=== PATIENT | female | born 1990 | race Caucasian/White ===

== ENCOUNTER 2016-10-01 14:11 | Emergency (ER) | payer BC, OTHER ==
[2016-10-01] MEDS ORDERED: HALOPERIDOL 5 MG/ML VIAL ONE (16:34)
== END 2016-10-01 19:24 | disposition home or self-care (01) ==
DX: R51 Headache (principal); R11.2 Nausea with vomiting, unspecified; H53.149 Visual discomfort, unspecified; Z86.69 Personal history of other diseases of the nervous system and sense organs; F41.9 Anxiety disorder, unspecified

== ENCOUNTER 2021-05-02 19:06 | Outpatient (CLI) | payer MEDICAID | END 2021-05-02 19:07 | disposition critical access hospital (66) | LOC: EMS 19:06 | DX: O9A.211 Injury, poisoning and certain other consequences of external causes complicating pregnancy, first trimester (principal); S06.9X1A Unspecified intracranial injury with loss of consciousness of 30 minutes or less, initial encounter; T14.8XXA Other injury of unspecified body region, initial encounter; R68.84 Jaw pain; V28.4XXA Motorcycle driver injured in noncollision transport accident in traffic accident, initial encounter; Y93.89 Activity, other specified; Z3A.00 Weeks of gestation of pregnancy not specified | CPT/HCPCS: A0425; A0429 ==

== ENCOUNTER 2021-05-02 19:16 | Emergency (ER) | payer BC, MEDICAID ==
[2021-05-02] MEDS ORDERED: ETOMIDATE 40 MG/20 ML VIAL IVP STA (19:19)
[2021-05-02] MEDS ORDERED: fentaNYL 100 MCG/2 ML VIAL IVP STA ×2 (19:19→21:19)
[2021-05-02] MEDS ORDERED: ROCURONIUM 50 MG/5 ML VIAL IVP STA (19:19)
[2021-05-02] MEDS ORDERED: LIDOCAINE 2% ABBOJECT 100 MG/5 ML SYRINGE IVP STA (19:19)
[2021-05-02] MEDS ORDERED: fentaNYL 100 MCG/2 ML VIAL ONE (19:24)
[2021-05-02] MEDS ORDERED: LIDOCAINE 2%-EPI 1:100000 20 ML MDV ONE (19:24)
[2021-05-02] MEDS ORDERED: ETOMIDATE 40 MG/20 ML VIAL IVP ONE (19:25)
[2021-05-02] MEDS ORDERED: PROPOFOL 500 MG/50 ML 500 MG/50 ML VIAL IV STA (19:37)
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
[2021-05-02 19:51] LABS: BASOPHILS # (AUTO) 0.1 10^3/uL (0.0-0.1); BASOPHILS % (AUTO) 0.5 %; EOSINOPHILS # (AUTO) 0.1 10^3/uL (0.0-0.7); EOSINOPHILS % (AUTO) 0.7 %; HCT - HEMATOCRIT 32.3 % (37.0-47.0); HGB - HEMOGLOBIN 10.7 g/dL (12.0-16.0); LYMPHOCYTES # (AUTO) 4.9 10^3/uL (1.5-3.5); LYMPHOCYTES % (AUTO) 29.8 %; MEAN CORPUSCULAR HEMOGLOBIN 29.4 pg (27.0-31.0); MEAN CORPUSCULAR HGB CONC 33.1 g/dL (32.0-36.0); MEAN CORPUSCULAR VOLUME 88.7 fL (81.0-99.0); MEAN PLATELET VOLUME 9.7 fL (7.9-10.8); MONOCYTES # (AUTO) 0.7 10^3/uL (0.0-1.0); MONOCYTES % (AUTO) 4.2 %; NEUTROPHILS # (AUTO) 10.5 10^3/uL (1.5-6.6); NEUTROPHILS % (AUTO) 63.5 %; PLT - PLATELET COUNT 278 10^3/uL (130-450); RED BLOOD COUNT 3.64 10^6/uL (4.20-5.40); RED CELL DISTRIBUTION WIDTH 14.6 % (12.0-15.0); WHITE BLOOD COUNT 16.5 x10^3/uL (4.8-10.8)
[2021-05-02 20:03] LABS: ALBUMIN 3.1 g/dL (3.2-5.5); ALBUMIN/GLOBULIN RATIO 0.9 (1.0-2.2); ALKALINE PHOSPHATASE 82 IU/L (42-121); ALT ALANINE AMINOTRANSFERASE 28 IU/L (10-60); AST ASPARTATE AMINOTRANSFERASE 55 IU/L (10-42); BILIRUBIN,TOTAL 0.8 mg/dL (0.2-1.0); BUN - BLOOD UREA NITROGEN 14 mg/dL (6-20); CALCIUM 8.7 mg/dL (8.5-10.3); CARBON DIOXIDE - CO2 22 mmol/L (21-32); CHLORIDE 104 mmol/L (101-111); CREATININE 0.5 mg/dL (0.4-1.0); ETOH - ETHANOL < 5.0 mg/dL; GFR - MDRD 146 (>89); GLUCOSE 124 mg/dL (70-100); MAGNESIUM 1.9 mg/dL (1.7-2.8); POTASSIUM 3.4 mmol/L (3.5-5.0); SODIUM 136 mmol/L (135-145); TOTAL PROTEIN 6.7 g/dL (6.7-8.2)
[2021-05-02] MEDS ORDERED: PROPOFOL 200 MG/20 ML VIAL IVP STA (20:08)
[2021-05-02] MEDS ORDERED: MIDAZOLAM 2 MG/2 ML VIAL IVP STA (20:09)
[2021-05-02 20:22] LABS: MUDS CUTOFF CONCENTRATIONS CUTOFF CONC BELOW:
--- NOTE | 2021-05-02 20:25 | XRAY Report ---
PROCEDURE: Chest 1 View X-Ray INDICATIONS: resp failure TECHNIQUE: One view of the chest was acquired. COMPARISON: None FINDINGS: Surgical changes and devices: ET tube tip projects to near the cesar should be pulled back 2 to 3 cm . Distal tip of the ET tube is not definitely visualized due to artifact related to medical assistant ob gyn ov erlying the chest. NG tube projects past GE junction with tip and side-port projecting over the stoma ch. Lungs and pleura: No pleural effusions or pneumothorax. Increased opacification noted in the right l yariel which could represent atelectasis, aspiration or pulmonary contusion. Mediastinum: Mediastinal contours appear normal. Heart size is normal. Bones and chest wall: No displaced rib fractures identified. No suspicious bony lesions. Overlying soft tissues appear unremarkable. IMPRESSION: 1. ET tube near the cesar and should be pulled back 2 to 3 cm. 2. Increased opacification in the right lung which could represent pulmonary contusion, aspiration or atelectasis. Reviewed by: Andria Flynn MD, PhD on 05/02/2021 8:24 PM PDT Approved by: Andria Flynn MD, PhD on 05/02/2021 8:24 PM PDT Station ID: [email or web address]
[2021-05-02 20:27] LABS: BILIRUBIN,URINE NEGATIVE (NEGATIVE); GLUCOSE, URINE (UA) NEGATIVE (NEGATIVE); KETONES,URINE (UA) NEGATIVE (NEGATIVE); LEUKOCYTE ESTERASE, URINE NEGATIVE (NEGATIVE); NITRITE,URINE NEGATIVE (NEGATIVE); OCCULT BLOOD,URINE MODERATE (NEGATIVE); PROTEIN,URINE TRACE mg/dL (NEGATIVE); UROBILINOGEN,URINE 0.2 (NORMAL) E.U./dL (NORMAL)
[2021-05-02] MEDS ORDERED: IOPAMIDOL-300 50 ML VIAL IVP ONE (20:27)
--- NOTE | 2021-05-02 20:29 | CT Report ---
PROCEDURE: HEAD WO INDICATIONS: head inj TECHNIQUE: Noncontrast 4.5 mm thick angled axial sections acquired from the foramen magnum to the vertex. For r adiation dose reduction, the following was used: automated exposure control, adjustment of mA and/or kV according to patient size. COMPARISON: None. FINDINGS: Image quality: Excellent. CSF spaces: Basal cisterns are patent. No extra-axial fluid collections. Ventricles are normal in size and shape. Brain: No midline shift. No intracranial masses or hemorrhage. Farmer-white matter interface is norm al. Skull and face: Calvarium and visualized facial bones are intact, without suspicious lesions. Modera te-sized left temporal-parietal scalp contusion. Sinuses: Visualized sinuses and mastoids are clear. IMPRESSION: No acute intracranial disease process. Reviewed by: Andria Flynn MD, PhD on 05/02/2021 8:28 PM PDT Approved by: Andria Flynn MD, PhD on 05/02/2021 8:28 PM PDT Station ID: [email or web address]
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
[2021-05-02 20:33] LABS: BACTERIA,URINE Many /HPF (None Seen); CLARITY,URINE SL. CLOUDY (CLEAR); MUCUS,URINE Few Strands; SQUAMOUS EPITHELIAL CELL,UR FEW Squamous (<= Few)
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
[2021-05-02] MEDS ORDERED: IOPAMIDOL-300 50 ML VIAL ONE (20:35)
[2021-05-02 20:38] LABS: ABG HCO3 23.3 mmol/L (22.0-26.0); ABG PCO2 41 mmHg (34-45); ABG PH 7.37 (7.35-7.45); ABG PO2 142 mmHg (80-100); ABG TCO2 24.6 MMOL/L (21.0-29.0)
[2021-05-02 20:39] LABS: ABG BASE EXCESS -1.9 mmol/L (-2.0-3.0); ABG MODE OF VENTILATION ASSIST/CONTROL; ABG OXYGEN SATURATION 98 % (94-98); ABG RESPIRATORY RATE 18 b/min; ALLEN TEST POSITIVE
[2021-05-02 20:41] LABS: AMPHETAMINE SCREEN,URINE POSITIVE (NEGATIVE); BARBITURATE SCREEN,UR NEGATIVE (NEGATIVE); BENZODIAZEPINES SCREEN, URINE NEGATIVE (NEGATIVE); COCAINE SCREEN URINE NEGATIVE (NEGATIVE); METHADONE SCREEN, URINE NEGATIVE (NEGATIVE); METHAMPHETAMINES SCREEN, URINE POSITIVE (NEGATIVE); OPIATE SCREEN, URINE POSITIVE (NEGATIVE); OXYCODONE SCREEN, URINE NEGATIVE (NEGATIVE); PROPOXYPHENE SCREEN, URINE NEGATIVE (NEGATIVE); THC CANNABINOID SCREEN, URINE NEGATIVE (NEGATIVE); TRICYCLIC ANTIDEPRESSANT,URINE NEGATIVE (NEGATIVE)
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
[2021-05-02] MEDS ORDERED: LORazepam 2 MG/ML VIAL IVP STA (20:46)
[2021-05-02] MEDS ORDERED: ceFAZolin 1 GM VIAL IVP STA (20:49)
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
[2021-05-02 21:07] VITALS: BP 132/85
[2021-05-02 21:11] LABS: B. PARAPERTUSSIS- RESP PCR PAN NOT DETECTED; B. PERTUSSIS- RESP PCR PANEL NOT DETECTED; C. PNEUMONIAE- RESP PCR PANEL NOT DETECTED; CORONAVIRUS 229E-RESP PCR NOT DETECTED; CORONAVIRUS HKU1-RESP PCR NOT DETECTED; CORONAVIRUS NL63-RESP PCR NOT DETECTED; CORONAVIRUS OC43-RESP PCR NOT DETECTED; HUMAN METAPNEUMOVIRUS NOT DETECTED; INFLUENZA A- RESP PCR PANEL NOT DETECTED; INFLUENZA B - RESP PCR PANEL NOT DETECTED; M. PNEUMONIAE- RESP PCR PANEL NOT DETECTED; PARAINFLUENZA VIRUS 1 NOT DETECTED; PARAINFLUENZA VIRUS 2 NOT DETECTED; PARAINFLUENZA VIRUS 3 NOT DETECTED; PARAINFLUENZA VIRUS 4 NOT DETECTED; RHINOVIRUS/ENTEROVIRUS NOT DETECTED; RSV- RESP PCR PANEL NOT DETECTED; SARS-CoV-2 -RESP PCR PANEL NOT DETECTED
== END 2021-05-02 21:50 | disposition short-term general hospital (02) ==
LOC: EDUNIT# → ED 19:16
DX: O99.891 Other specified diseases and conditions complicating pregnancy (principal); O9A.212 Injury, poisoning and certain other consequences of external causes complicating pregnancy, second trimester; S06.9X1A Unspecified intracranial injury with loss of consciousness of 30 minutes or less, initial encounter; R40.2431 Glasgow coma scale score 3-8, in the field [EMT or ambulance]; R56.9 Unspecified convulsions; S02.69XB Fracture of mandible of other specified site, initial encounter for open fracture; S80.212A Abrasion, left knee, initial encounter; V28.4XXA Motorcycle driver injured in noncollision transport accident in traffic accident, initial encounter; Y92.410 Unspecified street and highway as the place of occurrence of the external cause; J96.00 Acute respiratory failure, unspecified whether with hypoxia or hypercapnia; T17.990A Other foreign object in respiratory tract, part unspecified in causing asphyxiation, initial encounter; Y65.3 Endotracheal tube wrongly placed during anesthetic procedure; Y92.230 Patient room in hospital as the place of occurrence of the external cause; O99.322 Drug use complicating pregnancy, second trimester; F15.10 Other stimulant abuse, uncomplicated; Z3A.20 20 weeks gestation of pregnancy; R82.71 Bacteriuria; Z20.822 Contact with and (suspected) exposure to COVID-19
CPT/HCPCS: 0202U; 31500; 36415; 36600; 51702; 70450; 71045; 71260; 72125; 74177; 80053; 80306; 80320; 81001; 82803; 83735; 85025; 85610; 96374; 96375; 99291; G0390; J2060; Q9967; 81003; 87086; 94770

== ENCOUNTER 2021-06-02 19:10 | Outpatient (CLI) | payer MEDICAID | END 2021-06-02 19:11 | disposition critical access hospital (66) | LOC: EMS 19:10 | DX: O46.93 Antepartum hemorrhage, unspecified, third trimester (principal); O99.891 Other specified diseases and conditions complicating pregnancy; M54.5 Low back pain; Z3A.28 28 weeks gestation of pregnancy | CPT/HCPCS: A0425; A0429; A0999 ==

== ENCOUNTER 2021-06-02 19:27 | Outpatient (CLI) | payer MEDICAID ==
[2021-06-02] MEDS ORDERED: SODIUM CHLORIDE FLUSH 0.9% 10 ML SYRINGE IVP PRN (19:35)
[2021-06-02] MEDS ORDERED: LACTATED RINGERS 1,000 ML IV ONE (19:38)
[2021-06-02] MEDS ORDERED: DEXTROSE 10% 250 ML IV ONE ×2 (19:50→19:53)
[2021-06-02] MEDS ORDERED: OXYTOCIN/SODIUM CHLORIDE 500 ML IV ONE (19:51)
[2021-06-02] MEDS ORDERED: OXYTOCIN 10 UNIT/ML VIAL IM ONE (19:55)
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
--- NOTE | 2021-06-02 20:54 | DELIVERY NOTE ---
Delivery Note - Labor Labor: positive: Spontaneous - Delivery Method Delivery Method: positive: Vaginal after - Presentation Presentation: positive: OA - occiput anterior - Nuchal Cord Nuchal Cord: positive: None - Anesthetic Anesthetic Type: - Amniotic Fluid Description Amniotic Fluid Description: positive: [place] tinged (Small amount.) - Episiotomy Type Episiotomy Type: positive: None - Laceration Laceration: positive: None - Delivery Outcome Delivery Outcome: positive: Livebirth - [place] sex: positive: Male - Cord Cord: positive: 3 vessels - Placenta Placenta: positive: Intact, Spontaneous - Estimated Blood Loss Estimated Blood Loss (in cc): 50 - Post Delivery Events Post Delivery Events: positive: No post delivery events - Delivery Comments (Free Text/Narrative) Delivery Comments (Free Text/Narrative): Preoperative diagnoses: 28 weeks gestation labor Prolonged, , prelabor rupture of membranes Hepatitis C Drug abuse in Short interpregnancy interval tobacco abuse in Previous low transverse section x1 Trial of labor after section Postoperative diagnoses: Same Vaginal after section History synopsis: Patient is a 31-year-old -0-1-1 at 28 weeks gestation who presented in labor after prolonged, , prelabor rupture of membranes that started on 05/07/2021. She previously received magnesium sulfate and two courses of corticosteroids. She remained inpatient at [facility] until yesterday when she left the hospital to be home for a few days. She started raghav earlier this evening and called EMS and was brought to the hospital. On arrival she was found to be grossly ruptured and completely dilated. Pediatricians were notified and on their way and the transport team was notified and also on their way. Mother was coached to breathe through contractions the most she could, however after several contractions, she could not hold it any longer. Delivery Summary: Patient was in the dorsal supine position in the triage bed when she was checked found to be 10/102/+2 and pushing. Upon maternal pushing the head was delivered atraumatically followed by the anterior shoulder, posterior shoulder, then the remainder of the 's body. Baby delivered in OA position and a male was delivered weighing 2 pounds 10 ounces with Apgars of 6 at 1 minute and 8 at 5 minutes. The was placed in a plastic bag and the cord was clamped and cut. The was then taken to the warmer where the pediatric team assumed care of the . A small amount of cord blood was obtained. The placenta delivered intact with three vessel cord. Placenta was sent to pathology. The patient did not have adequate IV access, so 10 units of IM oxytocin were given after the removal of the placenta. Uterine massage was performed until uterus was deemed firm. Upon inspection of the perineum, vagina and cervix were intact. Needle and sponge counts were correct. Patient was stable and allowed to recover in L&D room. was in the nursery awaiting transport to the NICU.
[2021-06-02] MEDS ORDERED: SIMETHICONE CHEW 80 MG TABLET PO PRN (20:59)
[2021-06-02] MEDS ORDERED: DOCUSATE SODIUM 100 MG CAPSULE PO PRN (20:59)
[2021-06-02] MEDS ORDERED: ACETAMINOPHEN 500 MG TABLET PO SCH (21:00)
[2021-06-02] MEDS ORDERED: IBUPROFEN 600 MG TABLET PO SCH (21:00)
[2021-06-02] MEDS ORDERED: LACTATED RINGERS 1,000 ML IV SCH (21:00)
[2021-06-02 22:05] LABS: MUDS CUTOFF CONCENTRATIONS CUTOFF CONC BELOW:
[2021-06-02 22:07] LABS: BILIRUBIN,URINE NEGATIVE (NEGATIVE); GLUCOSE, URINE (UA) NEGATIVE (NEGATIVE); KETONES,URINE (UA) 15 mg/dL (NEGATIVE); LEUKOCYTE ESTERASE, URINE NEGATIVE (NEGATIVE); NITRITE,URINE NEGATIVE (NEGATIVE); OCCULT BLOOD,URINE LARGE (NEGATIVE); PROTEIN,URINE NEGATIVE (NEGATIVE); UROBILINOGEN,URINE 0.2 (NORMAL) E.U./dL (NORMAL)
[2021-06-02 22:13] LABS: CLARITY,URINE HAZY (CLEAR)
[2021-06-02 22:14] LABS: BACTERIA,URINE Rare /HPF (None Seen); RBC,URINE TNTC /HPF (0-5); SQUAMOUS EPITHELIAL CELL,UR RARE Squamous (<= Few); WBC,URINE 0-3 /HPF (0-5)
[2021-06-02 22:16] LABS: COCAINE SCREEN URINE NEGATIVE (NEGATIVE); THC CANNABINOID SCREEN, URINE NEGATIVE (NEGATIVE)
[2021-06-02 22:17] LABS: AMPHETAMINE SCREEN,URINE POSITIVE (NEGATIVE); BARBITURATE SCREEN,UR NEGATIVE (NEGATIVE); BENZODIAZEPINES SCREEN, URINE NEGATIVE (NEGATIVE); METHADONE SCREEN, URINE POSITIVE (NEGATIVE); METHAMPHETAMINES SCREEN, URINE POSITIVE (NEGATIVE); OPIATE SCREEN, URINE NEGATIVE (NEGATIVE); OXYCODONE SCREEN, URINE NEGATIVE (NEGATIVE); PROPOXYPHENE SCREEN, URINE NEGATIVE (NEGATIVE); TRICYCLIC ANTIDEPRESSANT,URINE NEGATIVE (NEGATIVE)
[2021-06-02] MEDS ORDERED: levETIRAcetam 100 MG/ML 473ML BOTTLE PO SCH (23:00)
[2021-06-02] MEDS ORDERED: levETIRAcetam 250 MG TABLET PO SCH (23:45)
[2021-06-03 02:39] VITALS: BP 116/61
--- NOTE | 2021-06-03 05:58 | DISCHARGE SUMMARY ---
"Discharge Summary Admit Date: 06/02/21 Discharge Date: 06/03/21 Discharging Provider: Rakesh Goff Code Status: Attempt Resuscitation Condition at Discharge: Good Discharge Disposition: 01 Home, Self Care - DIAGNOSES Admission Diagnoses: 28 weeks gestation labor Prolonged, , prelabor rupture of membranes Drug use in [place] Tobacco use in Previous low transverse section x1 Short interpregnancy interval History of brain bleed Discharge Diagnoses with Status of Each Condition: Spontaneous vaginal delivery Drug use in - Patient discharging to go to appointment at methadone clinic in [place]. Discussed CPS situation with patient -Discussed options for future . Tobacco use in -Encouraged cessation Previous low transverse section x1 Short interpregnancy interval History of brain bleed-Continue Keppra until directed otherwise by primary provider. - HOSPITAL COURSE Hospital Course: Patient presented at 28 weeks gestation in active labor. She was complete upon presentation and delivered quickly. A live female was born weighing 2 pounds 10 ounces. She had initial resuscitation done at the hospital and was transferred shortly after. Patient had an uncomplicated course, however due to her opioid addiction, she was eager to leave as she had already missed 1 dose of her methadone. She has an appointment this morning in [place] at the methadone clinic. Plan is to transition to [facility]. She was previously on this and did well. Discussed that she also tested positive for methamphetamines, which she says this must have been in someone's vape. She does not actively use. Discussed that is very important to remain clean and avoid any possible contaminants as CPS goes along with their investigation. Patient does not plan to breast-feed, and discussed breast binding if this becomes problematic. Uterus firm below umbilicus. No significant bleeding. Voiding and walking without difficulty. Although it is earlier than I usually discharge patients, he is eager to stay clean with the help of methadone and would very much like to go. Discussed following up in several days or sooner if she develops fever, chills, abdominal tenderness. Plans on Nexplanon for contraception. Discussed depression versus baby blues. Encouraged patient to seek help with the symptoms become present, especially if severe. Patient understands was discharged in good con dition. - ALLERGIES Allergies/Adverse Reactions: Allergies Allergy/AdvReac Type Severity Reaction Status Date / Time No Known Drug Allergies Allergy Verified 06/02/21 21:17 - MEDICATIONS Home Medications Other | Comments: Methadone 70 mg Keppra 500 mg twice daily - PHYSICAL EXAM AT DISCHARGE General Appearance: positive: No acute distress Eyes Bilateral: positive: Normal inspection Respiratory: positive: No respiratory distress Cardiovascular: positive: Regular rate & rhythm. negative: Tachycardia, Bradycardia Abdomen: positive: Non-tender, Other (Uterus below umbilicus, firm) Skin: positive: Other (Multiple spots and scabs diffuse on body.) Extremities: positive: Other Neurologic/Psychiatric: positive: Oriented x3, Motor nml, Sensation nml, Mood/affect nml - FOLLOW UP Follow Up: Follow-up with me in clinic within 1 week. Clinic information given to patient. - TIME SPENT Time Spent in Discharge (Minutes): 30"
[2021-06-03 23:29] LABS: CHLAMYDIA TRACHOMATIS DNA NEGATIVE (NEGATIVE); NEISSERIA GONORRHOEAE DNA NEGATIVE (NEGATIVE); TRICHOMONAS VAGINALIS DNA NEGATIVE (NEGATIVE)
== END 2021-06-03 06:51 | disposition home or self-care (01) ==
LOC: WFO 19:27 → FBP 19:27 → WFO 19:50 → UNDOADMIN 19:52 → FBP 19:52 → UNDODISIN 06-03 06:51 → WFO 06-03 06:51
PROVIDERS: ATTEND Obstetrics & Gynecology
PROC: 10E0XZZ Delivery of Products of Conception, External Approach (ICD-10-PCS; principal; 2021-06-02)
DX: O60.14X0 Preterm labor third trimester with preterm delivery third trimester, not applicable or unspecified (principal); O42.113 Preterm premature rupture of membranes, onset of labor more than 24 hours following rupture, third trimester; O34.219 Maternal care for unspecified type scar from previous cesarean delivery; O99.324 Drug use complicating childbirth; F11.20 Opioid dependence, uncomplicated; F15.90 Other stimulant use, unspecified, uncomplicated; O98.42 Viral hepatitis complicating childbirth; B19.20 Unspecified viral hepatitis C without hepatic coma; N85.8 Other specified noninflammatory disorders of uterus; Z37.0 Single live birth; Z3A.28 28 weeks gestation of pregnancy; O99.334 Smoking (tobacco) complicating childbirth; F17.200 Nicotine dependence, unspecified, uncomplicated; O9A.22 Injury, poisoning and certain other consequences of external causes complicating childbirth; S06.309D Unspecified focal traumatic brain injury with loss of consciousness of unspecified duration, subsequent encounter; V00.848D Other accident with standing micro-mobility pedestrian conveyance, subsequent encounter
CPT/HCPCS: 59612; 80306; 81001; 87491; 87591; 87661; 99215; A9270; J3490; J7120; 82731; 84112; 87086

== ENCOUNTER 2022-08-27 23:29 | Outpatient (CLI) | payer MEDICAID | END 2022-08-27 23:30 | disposition left against medical advice (07) | LOC: EMS 23:29 | DX: T18.9XXA Foreign body of alimentary tract, part unspecified, initial encounter (principal) ==

== ENCOUNTER 2022-08-28 03:02 | Day surgery (SDC) | payer MEDICAID ==
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
[2022-08-28 06:26] LABS: BASOPHILS % (AUTO) 0.3 %; HCT - HEMATOCRIT 40.1 % (37.0-47.0); HGB - HEMOGLOBIN 12.3 g/dL (12.0-16.0); LYMPHOCYTES # (AUTO) 1.3 10^3/uL (1.5-3.5); LYMPHOCYTES % (AUTO) 9.8 %; MEAN CORPUSCULAR HEMOGLOBIN 25.8 pg (27.0-31.0); MEAN CORPUSCULAR HGB CONC 30.7 g/dL (32.0-36.0); MEAN CORPUSCULAR VOLUME 84.1 fL (81.0-99.0); MONOCYTES # (AUTO) 0.7 10^3/uL (0.0-1.0); MONOCYTES % (AUTO) 5.3 %; NEUTROPHILS # (AUTO) 10.9 10^3/uL (1.5-6.6); NEUTROPHILS % (AUTO) 84.4 %; PLT - PLATELET COUNT 284 10^3/uL (130-450); RED BLOOD COUNT 4.77 10^6/uL (4.20-5.40); WHITE BLOOD COUNT 12.9 x10^3/uL (4.8-10.8)
[2022-08-28 07:01] LABS: CALCIUM 9.1 mg/dL (8.5-10.3); CREATININE 0.6 mg/dL (0.4-1.0); POTASSIUM 3.5 mmol/L (3.5-5.0)
[2022-08-28 07:26] LABS: HCG,QUALITATIVE BLOOD NEGATIVE
[2022-08-28 07:37] LABS: B. PARAPERTUSSIS- RESP PCR PAN NOT DETECTED; B. PERTUSSIS- RESP PCR PANEL NOT DETECTED; C. PNEUMONIAE- RESP PCR PANEL NOT DETECTED; CORONAVIRUS 229E-RESP PCR NOT DETECTED; CORONAVIRUS HKU1-RESP PCR NOT DETECTED; CORONAVIRUS NL63-RESP PCR NOT DETECTED; CORONAVIRUS OC43-RESP PCR NOT DETECTED; HUMAN METAPNEUMOVIRUS NOT DETECTED; INFLUENZA A- RESP PCR PANEL NOT DETECTED; INFLUENZA B - RESP PCR PANEL NOT DETECTED; M. PNEUMONIAE- RESP PCR PANEL NOT DETECTED; PARAINFLUENZA VIRUS 1 NOT DETECTED; PARAINFLUENZA VIRUS 2 NOT DETECTED; PARAINFLUENZA VIRUS 3 NOT DETECTED; PARAINFLUENZA VIRUS 4 NOT DETECTED; RSV- RESP PCR PANEL NOT DETECTED; SARS-CoV-2 -RESP PCR PANEL NOT DETECTED
[2022-08-28 07:38] LABS: RHINOVIRUS/ENTEROVIRUS DETECTED
[2022-08-28] MEDS ORDERED: PROPOFOL 200 MG/20 ML VIAL IVP ONE (08:19)
[2022-08-28] MEDS ORDERED: SUCCINYLCHOLINE 200 MG/10 ML VIAL ONE (08:20)
[2022-08-28] MEDS ORDERED: MIDAZOLAM 2 MG/2 ML VIAL ONE (08:23)
[2022-08-28] MEDS ORDERED: fentaNYL 100 MCG/2 ML VIAL ONE (08:23)
--- NOTE | 2022-08-28 08:32 | CT Report ---
PROCEDURE: CHEST WO INDICATIONS: swallowed FB, seen on CXR approximate level of T1 TECHNIQUE: Noncontrast 1mm axial images were acquired from the pulmonary apices to the posterior costophrenic an gles. Axial 5 mm soft tissue kernel reconstructions were performed as well as 8 mm axial MIP and cor onal and sagittal 5 mm reformations. For radiation dose reduction, the following was used: automate d exposure control, adjustment of mA and/or kV according to patient size. COMPARISON: 05/02/2021. Correlation is also made with the accompanying plain films.. Correlation is a lso made with prior abdomen and pelvis CT, 05/02/2021. FINDINGS: Image quality: Excellent. Lungs and pleura: Patchy right perihilar infiltrate is seen involving the right middle lobe and the r ight lower lobe. Within the left lower lobe, there is a more mild degree of patchy groundglass opacit y seen. No pleural effusions or pneumothorax. Central and peripheral airways are patent and normal i n caliber. Mediastinum: Within the upper esophagus centered at the T1-T2 level, there is a rounded hyperdense f oreign body seen, with a maximum transverse measurement of 2.6 cm and a maximum craniocaudal measurem ent of 2.8 cm and a maximum AP measurement of 1.1 cm. The internal density measures 2000 Houn[place] u nits. This can be seen on series 36 image 71 and on series 9 image 19. No adjacent gas or significant inflammatory change can be seen. Heart size is normal. No pericardial effusion. No mediastinal adenopathy by size criteria. Thoraci c aorta and central pulmonary arteries are normal in size. No hiatal hernia. Bones and chest wall: No suspicious bony lesions. No vertebral body compression fractures. No axil segundo or supraclavicular adenopathy by size criteria. The thyroid is normal in size and there are no incidental findings. Abdomen: No radiopaque foreign bodies are seen. There is a moderate amount of stool seen within the v isualized colon. The visualized portions of the upper abdominal structures are otherwise within rosalba l limits. IMPRESSION: 2.8 cm foreign body consistent with the given history of a swallowed rock seen centered within the esophagus at the T1-T2 level. No deidre findings of esophageal perforation can be seen. Patchy infiltrate can be seen within the perihilar regions of the right middle lobe and the right low er lobe. Minimal left lower lobe patchy groundglass opacity can also be seen. The appearance is most compatible with a viral or atypical pneumonia. Additional findings: Moderate stool within the colon Note: No significant discrepancy from the preliminary report. Reviewed by: Myron Pham MD on 08/28/2022 7:31 AM [place] Approved by: Myron Pham MD on 08/28/2022 7:31 AM [facility] Station ID: [id number]
--- NOTE | 2022-08-28 08:33 | ANESTHESIA ---
Pre-Anesthesia VS, & Labs - Diagnosis Foreign body esophagus - Procedure EGD with removal of FB Vital Signs: Temp Pulse Resp BP Pulse Ox O2 Flow Rate 37.3 C 72 16 113/77 99 08/28/22 03:12 08/28/22 07:00 08/28/22 07:00 08/28/22 07:00 08/28/22 07:00 Height: 5 ft 5 in Weight (kg): 75.75 kg Body Mass Index: 27.8 BMI Classification: Overweight - NPO >8 hours - Is Patient ?: No - Lab Results Current Lab Results: Laboratory Tests 08/28/22 06:45: Serum HCG, Qual NEGATIVE 08/28/22 06:45: Sodium 138, Potassium 3.5, Chloride 102, Carbon Dioxide 27, A nion Gap 9.0, BUN 22 H, Creatinine 0.6, Estimated GFR (MDRD) 117, Glucose 92, Calcium 9.1 08/28/22 06:20: WBC 12.9 H, RBC 4.77, Hgb 12.3, Hct 40.1, MCV 84.1, MCH 25.8 L, MCHC 30.7 L, RDW 14.0, Plt Count 284, MPV 10.0, Neut # (Auto) 10.9 H, Lymph # (Auto) 1.3 L, Bacon # (Auto) 0.7, Eos # (Auto) 0.0, Baso # (Auto) 0.0, Absolute Nucleated RBC 0.00, Nucleated RBC % 0.0 Fish Bones: 08/28/22 06:20 08/28/22 06:45 Home Medications and Allergies Allergies/Adverse Reactions: Allergies Allergy/AdvReac Type Severity Reaction Status Date / Time oseltamivir [From Tamiflu] Allergy Emesis Verified 08/28/22 03:16 tramadol Allergy Emesis Verified 08/28/22 03:16 Anes History & Medical History - Anesthetic History Anesthesia Complications: reports: No previous complications - Medical History Cardiovascular: reports: None Pulmonary: reports: None Gastrointestinal: reports: None Urinary: reports: None Neuro: reports: None Musculoskeletal: reports: None Endocrine/Autoimmune: reports: None Blood Disorders: reports: None Skin: reports: None Smoking Status: Current every day smoker (vapes) Psychosocial: reports: Opioid (smokes fentanyl daily) - Surgical History General: reports: Other Gynecologic: reports: section Plan Anesthesia Type: General (RSI) Consent for Procedure(s) Verified and Reviewed: Yes Code Status: Attempt Resuscitation ASA classification: 2-Mild systemic disease Is this case an emergency?: Yes
--- NOTE | 2022-08-28 08:34 | XRAY Report ---
PROCEDURE: Chest 2 View X-Ray INDICATIONS: swallowed FB, dyspnea, nausea/vomiting TECHNIQUE: 2 views of the chest were acquired. COMPARISON: 05/02/2021. Correlation is also made with the accompanying abdomen plain film as well as the subsequently performed chest CT. FINDINGS: Surgical changes and devices: None. Lungs and pleura: No pleural effusions or pneumothorax. Lungs are clear. Mediastinum: Mediastinal contours are normal. Heart size is normal. Bones and chest wall: No suspicious bony abnormalities. There is a radiopaque focus seen centered a t the thoracic inlet measuring up to 2.7 cm transversely and 2 cm craniocaudal in the proximal esopha clotilde. IMPRESSION: Proximal esophageal foreign body, which is consistent with the given history. Note: No significant discrepancy from the preliminary report. Reviewed by: Myron Pham MD on 08/28/2022 7:33 AM [facility] Approved by: Myron Pham MD on 08/28/2022 7:33 AM [facility] Station ID: [id number]
[2022-08-28] MEDS ORDERED: ONDANSETRON 4 MG/2 ML VIAL IVP PRN ×2 (08:35→09:30)
[2022-08-28] MEDS ORDERED: MORPHINE 2 MG/ML CARPUJECT IVP PRN (08:35)
[2022-08-28] MEDS ORDERED: ATROPINE ABBOJECT 1 MG/10 ML SYRINGE IVP PRN (08:35)
[2022-08-28] MEDS ORDERED: HYDROmorphone 0.5 MG/0.5 ML SYRINGE IVP PRN (08:35)
[2022-08-28] MEDS ORDERED: NALOXONE 0.4 MG/ML VIAL IVP PRN (08:35)
[2022-08-28] MEDS ORDERED: fentaNYL 100 MCG/2 ML VIAL IVP PRN (08:35)
--- NOTE | 2022-08-28 08:35 | HISTORY & PHYSICAL EXAMINATION ---
Chief Complaint - Chief Complaint Chief Complaint: cant swallow History of Present Illness - Admitted From Admitted From:: ED - History Obtained From Records Reviewed: yes History obtained from: pt and ED MD Exam Limitations: none - History of Present Illness HPI Comment/Other: swallowed stone last pm and it is stuck upper esophagus History - Past Medical History Cardiovascular: reports: None Respiratory: reports: None Neuro: reports: None Endocrine/Autoimmune: reports: None GI: reports: None CABLE TENDER: reports: None : reports: None HEENT: reports: None Psych: reports: None Musculoskeletal: reports: None Derm: reports: None MRSA Hx?: No - Past Surgical History General: reports: Other /CABLE TENDER: reports: section - POLST Patient has POLST: No Meds/Allgy - Home Medications Home Medications: Ambulatory Orders Medication Instructions Recorded Confirmed Ondansetron Odt [Zofran] 4 mg TL Q6H PRN #10 tablet 04/19/22 cephALEXin [Keflex] 500 mg PO BID #14 cap 04/19/22 - Allergies Allergies/Adverse Reactions: Allergies Allergy/AdvReac Type Severity Reaction Status Date / Time oseltamivir [From Tamiflu] Allergy Emesis Verified 08/28/22 03:16 tramadol Allergy Emesis Verified 08/28/22 03:16 Review of Systems - Other Findings Other Findings: 10 pt ros as above otherwise unremarkable Exam - Vital Signs Reviewed Vital Signs: Yes Vital Signs: Vital Signs x48h Temp Pulse Resp BP Pulse Ox 08/28/22 07:00 72 16 113/77 99 08/28/22 03:12 37.3 C 103 H 18 131/77 H 95 - Physical Exam General Appearance: positive: No acute distress, Alert Eyes Bilateral: positive: PERRL, EOMI ENT: positive: No signs of dehydration Neck: positive: No JVD, Trachea midline Respiratory: positive: No respiratory distress, Breath sounds nml Cardiovascular: positive: Regular rate & rhythm Abdomen: positive: Non-tender, No distention Neurologic/Psychiatric: positive: Oriented x3 Conclusion/Plan - Problem List (1) Esophageal foreign body Conclusion/Plan: plan egd and attempt at removal. we discussed it may be difficult and a risk is we are not successful. She may need to transfer to higher level of care parq held and consent obtained. - Lab Results Fish Bones: 08/28/22 06:20 08/28/22 06:45
--- NOTE | 2022-08-28 08:35 | XRAY Report ---
PROCEDURE: Abdomen 1 View X-Ray INDICATIONS: swallowed FB, n/v TECHNIQUE: One view of the abdomen acquired. COMPARISON: Correlation is made with the accompanying chest radiograph as well as the subsequently p erformed chest CT, 08/28/2022. Correlation is also made to prior abdomen and pelvis CT from 05/02/2021 . FINDINGS: Surgical changes and devices: None. Bowel: Bowel gas pattern is normal. There is a moderate amount of stool seen within the colon. No r adiopaque foreign bodies are seen. Soft tissues: No suspicious abdominal calcifications. Visualized solid organ contours appear normal in size. Bones: No suspicious bony lesions. IMPRESSION: No radiopaque foreign bodies are seen. There is a moderate amount of stool seen within the colon. Please correlate with clinical constipatio n. Note: No significant discrepancy from the preliminary report. Reviewed by: Myron Pham MD on 08/28/2022 7:34 AM [place] Approved by: Myron Pham MD on 08/28/2022 7:34 AM [facility] Station ID: [id number]
[2022-08-28] MEDS ORDERED: LACTATED RINGERS 1,000 ML IV SCH (09:00)
[2022-08-28] MEDS ORDERED: LACTATED RINGERS 350 ML IV ONE (09:35)
--- NOTE | 2022-08-28 09:36 | OPERATIVE REPORT ---
Operative Report - General Planned Procedure: EGD with removal impacted stone Pre-Op Diagnosis: impacted stone esophagus Procedure Performed: egd with attempted removal of stone. stone dropped into the stomach very easily with suction over scope device Post Op Diagnosis: smooth oblong stone within stomach. small than pylorus - Procedure Note Primary Surgeon: beatriz mcrae - Other Other Information/Narrative: The patient was properly identified brought to the operating room and placed in supine position. General endotracheal anesthesia was induced. Upper endoscopy was performed. A very smooth and fairly narrow and mobile stone was seen in the upper esophagus. And over scope suction device was then used. The scope was withdrawn and suction device placed. The scope was replaced easily down to the upper esophagus. The over scope suction device was brought down towards the stone. The stone quickly dropped into the stomach before a suction device could be used. The stone was high up in the fundus. Was not able to apply suction to the stone. The scope was withdrawn and suction device removed. Patient was placed in head up position. This allowed the stone to fall downwards slightly. The stone was smaller than the pylorus. A loop was then attempted multiple times. Given the stone was narrow and very smooth the loop could not grasp the stone. Stone would quickly slip out of the loop. Given the stone is small smooth and smaller than the pylorus procedure was stopped. She should pass the stone easily without difficulty. In addition I believe further attempts at trying to extract the stone pull it upwards would be more risk than allowing the stone to pass naturally. She tolerated the procedure well was awakened and brought to recovery in good condition.
--- NOTE | 2022-08-28 09:57 | ANESTHESIA POST OP EVALUATION ---
Anesthesia Post Eval - Post Anesthesia Eval Vitals: Last Vital Signs Temp 36.5 C 08/28/22 09:50 Pulse 81 08/28/22 09:50 Resp 14 08/28/22 09:50 BP 113/72 08/28/22 09:50 Pulse Ox 100 08/28/22 09:50 O2 Flow Rate CV Function Including HR & BP: Stable Pain Control: Satisfactory Nausea & Vomiting: Negative Mental Status: Baseline Respiratory Status: Airway Patent Hydration Status: Satisfactory Anesthesia Complications: None
[2022-08-28 10:33] VITALS: BP 106/78
== END 2022-08-28 08:16 | disposition home or self-care (01) ==
LOC: ED 03:02 → SDS 08:15
PROVIDERS: ATTEND Surgery
DX: T18.198A Other foreign object in esophagus causing other injury, initial encounter (principal); X58.XXXA Exposure to other specified factors, initial encounter; Z20.822 Contact with and (suspected) exposure to COVID-19; F17.290 Nicotine dependence, other tobacco product, uncomplicated
CPT/HCPCS: 36415; 43247; 71046; 71250; 74018; 80048; 84703; 85025; 87633; 99282; 99285; J0330; J7120

== ENCOUNTER 2023-03-15 17:57 | Emergency (ER) | payer OTHER, MEDICAID ==
[2023-03-15 18:07] VITALS: BP 145/91
--- NOTE | 2023-03-15 19:13 | ED Physician Documentation ---
History of Present Illness - Stated complaint Stated Complaint: FIT - Chief complaint Chief Complaint: General - History obtained from History obtained from: Patient, Police - History of Present Illness Pain level max: 0 Pain level now: 0 - Additonal information Additional information: 32-year-old female brought in by police from [facility]. They state that she had 3 rocks in her vagina. Patient states that there are no more rocks in her vagina and denies any symptoms. Patient states that she put the rocks in her vagina Because they help her abdominal pain and block the energy. She denies any vaginal bleeding or discharge. No fevers. No chills. Nothing makes it better or worse. She has no complaints Review of Systems Constitutional: denies: Fever GI: denies: Vomiting, Diarrhea : denies: Dysuria, Frequency, Hesitancy, Now EGA Skin: denies: Rash Musculoskeletal: denies: Neck pain, Back pain Neurologic: denies: Headache PD PAST MEDICAL HISTORY - Past Medical History Cardiovascular: None Respiratory: None Neuro: None Endocrine/Autoimmune: None GI: None DEPUTY CITY CLERK: None : None HEENT: None Psych: None Musculoskeletal: None Derm: None - Past Surgical History Past Surgical History: Yes General: Other /DEPUTY CITY CLERK: section - Present Medications Home Medications: Ambulatory Orders Medication Instructions Recorded Confirmed Ondansetron Odt [Zofran] 4 mg TL Q6H PRN #10 tablet 04/19/22 cephALEXin [Keflex] 500 mg PO BID #14 cap 04/19/22 - Allergies Allergies/Adverse Reactions: Allergies Allergy/AdvReac Type Severity Reaction Status Date / Time oseltamivir [From Tamiflu] Allergy Emesis Verified 03/15/23 18:05 tramadol Allergy Emesis Verified 03/15/23 18:05 - Social History Does the pt smoke?: No Smoking Status: Never smoker Does the pt drink ETOH?: No Does the pt have substance abuse?: No - Immunizations Immunizations are current?: No - POLST Patient has POLST: No PD ED PE NORMAL - Vitals Vital signs reviewed: Yes - General General: Alert and oriented X 3, No acute distress - HEENT HEENT: Moist mucous membranes - Cardiac Cardiac: RRR - Respiratory Respiratory: No respiratory distress, Clear bilaterally - Abdomen Abdomen: Soft, Non tender, Non distended - Derm Derm: Warm and dry - Neuro Neuro: Alert and oriented X 3 - Psych Psych: Normal mood, Normal affect Results - Vitals Vitals: Vital Signs - 24 hr 03/15/23 17:59 Temperature 36.0 C L Heart Rate 110 H Respiratory 20 Rate Blood Pressure 145/91 H O2 Saturation 100 Oxygen O2 Source Room air PD Medical Decision Making - ED course Complexity details: considered differential, d/w patient ED course: 32-year-old female is being booked into [facility]. Reportedly had rocks in her vagina. Patient refuses a pelvic exam here. Initially consented to an x-ray, but then refused x-ray as well. Patient states that she refuses all medical care at this time. There is no emergency medical condition at this time. No evidence of sepsis. Patient can follow-up with the [facility] provider. This document was made in part using voice recognition software. While efforts are made to proofread this document, sound alike and grammatical errors may occur. Departure - Departure Disposition: 01 Home, Self Care Clinical Impression: Encounter for medical screening examination Condition: Good Instructions: ED Screening Exam Medical Nonurgent Comments: Patient has refused pelvic exam and x-ray. Monitor for any further signs of vaginal foreign bodies including vaginal pain, discharge, fevers or other new or worrisome symptoms Discharge Date/Time: 03/15/23 19:26
== END 2023-03-15 19:26 | disposition home or self-care (01) ==
LOC: ED 17:57
DX: T19.2XXA Foreign body in vulva and vagina, initial encounter (principal)
CPT/HCPCS: 99281; 99282

== ENCOUNTER 2024-03-21 01:35 | Outpatient (CLI) | payer MEDICAID | END 2024-03-21 23:59 | disposition critical access hospital (66) | LOC: EMS 01:35 | DX: Z04.6 Encounter for general psychiatric examination, requested by authority (principal); R46.2 Strange and inexplicable behavior; R46.5 Suspiciousness and marked evasiveness; Z78.1 Physical restraint status | CPT/HCPCS: A0425; A0429; A0999 ==

== ENCOUNTER 2024-03-21 01:54 | Emergency (ER) | payer MEDICAID ==
[2024-03-21] MEDS ORDERED: MIDAZOLAM 2 MG/2 ML VIAL ONE (02:04)
--- NOTE | 2024-03-21 02:04 | ED Physician Documentation ---
History of Present Illness - Stated complaint Stated Complaint: ELENA - History obtained from History obtained from: EMS - Additonal information Additional information: 34-year-old woman with history of polysubstance abuse including opiates and methamphetamine, possible prior history of brain bleed, presents with agitation tonight. [facility]. EMS brought her to the hospital and she was in soft restraints with EMS. Upon arrival I approached the patient to obtain a history but she was unable or unwilling to speak with me. Attempted environment modification, offered choices, to no avail. When staff nurse anesthetist approached, she attempted to attack staff therefore restraints were ordered. Further history limited by patient agitation/intoxication. PD PAST MEDICAL HISTORY - Past Medical History Cardiovascular: None Respiratory: None Neuro: None Endocrine/Autoimmune: None GI: None INSURANCE SALES PRODUCER: None : None HEENT: None Psych: None Musculoskeletal: None Derm: None - Past Surgical History Past Surgical History: Yes General: Other /INSURANCE SALES PRODUCER: section - Present Medications Home Medications: Ambulatory Orders Medication Instructions Recorded Confirmed No Known Home Medications 03/21/24 03/21/24 - Allergies Allergies/Adverse Reactions: Allergies Allergy/AdvReac Type Severity Reaction Status Date / Time oseltamivir [From Tamiflu] Allergy Emesis Verified 03/21/24 02:02 tramadol Allergy Emesis Verified 03/21/24 02:02 - Social History Does the pt smoke?: No Smoking Status: Never smoker Does the pt drink ETOH?: No Does the pt have substance abuse?: No - Immunizations Immunizations are current?: No - POLST Patient has POLST: No PD ED PE NORMAL - Vitals Vital signs reviewed: Yes - General General: No acute distress, Well developed/nourished - HEENT HEENT: Atraumatic, PERRL, EOMI, Moist mucous membranes, Pharynx benign - Neck Neck: Supple, no meningeal sign - Cardiac Cardiac: RRR - Respiratory Respiratory: No respiratory distress, Clear bilaterally - Abdomen Abdomen: Non tender, Non distended - Derm Derm: Normal color, Warm and dry - Extremities Extremities: No deformity - Neuro Neuro: Alert and oriented X 3 - Psych Psych: Other (agitated, uncooperative) Results - Vitals Vitals: Vital Signs - 24 hr 03/21/24 01:57 Temperature 37.3 C Heart Rate 111 H Respiratory 18 Rate Blood Pressure 142/90 H O2 Saturation 99 Oxygen O2 Source Room air PD Medical Decision Making - ED course ED course: 34yF p/w agitation after being found walking around naked on the road. Patient agitated, noncompliant. Attempted multiple diversionary tactics without success. patient was found to be a threat to staff therefore she was physically and chemically restrained. plan to obtain MHE labwork and likely will sign out to incoming daytime ED MD at 7am shift change. Departure - Departure Clinical Impression: Psychiatric symptoms, Polysubstance abuse Condition: Stable
[2024-03-21] MEDS ORDERED: diphenhydrAMINE INJ 50 MG/ML VIAL ONE (02:13)
--- NOTE | 2024-03-21 02:21 | ED Physician Documentation ---
Restraint [id number] - Immediate Situation Face to Face Evaluation Date: 03/21/24 Face to Face Evaluation Time: 02:20 Restraint Classification: Violent, physical, chemical (w/physical hold) - Patient's Reaction & Behaviors Safety: Physically safe Verbal: Demanding, Screaming/Yelling Harm: Actual harm to others Physical: Aggressive behavior, Fighting restraints - Behavioral Condition Attitude: Guarded Behavior: Belligerent Orientation: Non-responsive (patient will state she is in hospital but states "the future" when asked the year. unable or unwilling to state her name) Mood: Angry - Evaluation Pertinent History/Illicit Drugs/Medications/Results: See HPI - Plan Need to Initiate/Renew Violent or Chemical Restraint: Will discontinue when safe
[2024-03-21] MEDS: MIDAZOLAM 10 MG/2 ML VIAL IM STA (02:23)
[2024-03-21] MEDS: diphenhydrAMINE INJ 50 MG/ML VIAL IM STA (02:23)
[2024-03-21] MEDS: HALOPERIDOL 5 MG/ML VIAL IM STA (02:36)
[2024-03-21 03:02] LABS: BASOPHILS % (AUTO) 0.4 %; EOSINOPHILS % (AUTO) 0.1 %; HCT - HEMATOCRIT 38.1 % (37.0-47.0); LYMPHOCYTES % (AUTO) 21.5 %; MEAN CORPUSCULAR HEMOGLOBIN 26.4 pg (27.0-31.0); MEAN CORPUSCULAR HGB CONC 31.5 g/dL (32.0-36.0); MEAN CORPUSCULAR VOLUME 83.7 fL (81.0-99.0); MEAN PLATELET VOLUME 10.3 fL (7.9-10.8); MONOCYTES # (AUTO) 0.5 10^3/uL (0.0-1.0); MONOCYTES % (AUTO) 4.8 %; NEUTROPHILS # (AUTO) 6.8 10^3/uL (1.5-6.6); NEUTROPHILS % (AUTO) 72.9 %; PLT - PLATELET COUNT 265 10^3/uL (130-450); RED BLOOD COUNT 4.55 10^6/uL (4.20-5.40); RED CELL DISTRIBUTION WIDTH 13.1 % (12.0-15.0); WHITE BLOOD COUNT 9.4 x10^3/uL (4.8-10.8)
[2024-03-21 03:25] LABS: ALBUMIN 4.3 g/dL (3.2-5.5); ALBUMIN/GLOBULIN RATIO 1.3 (1.0-2.2); ALKALINE PHOSPHATASE 88 IU/L (42-121); ALT ALANINE AMINOTRANSFERASE 24 IU/L (10-60); AST ASPARTATE AMINOTRANSFERASE 19 IU/L (10-42); BILIRUBIN,TOTAL 0.8 mg/dL (0.2-1.0); BUN - BLOOD UREA NITROGEN 14 mg/dL (6-20); CALCIUM 9.7 mg/dL (8.5-10.3); CARBON DIOXIDE - CO2 22 mmol/L (21-32); CHLORIDE 104 mmol/L (101-111); CK- CREATINE KINASE 91 IU/L (30-223); CREATININE 0.7 mg/dL (0.6-1.3); ETOH - ETHANOL < 10.0 mg/dL; GFR - MDRD 97 (>89); GLUCOSE 126 mg/dL (74-104); POTASSIUM 3.5 mmol/L (3.5-4.5); SODIUM 139 mmol/L (135-145); TOTAL PROTEIN 7.6 g/dL (6.4-8.9)
[2024-03-21 03:28] LABS: LIPASE < 10 U/L (11-82)
[2024-03-21 03:29] LABS: ACETAMINOPHEN < 0.1 ug/mL; SALICYLATE < 1.5 mg/dL
[2024-03-21 03:33] LABS: THYROID STIMULATING HORMONE 0.99 uIU/mL (0.34-5.60)
[2024-03-21 04:34] LABS: BILIRUBIN,URINE SMALL (NEGATIVE); GLUCOSE, URINE (UA) NEGATIVE (NEGATIVE); KETONES,URINE (UA) TRACE mg/dL (NEGATIVE); LEUKOCYTE ESTERASE, URINE SMALL (NEGATIVE); NITRITE,URINE NEGATIVE (NEGATIVE); OCCULT BLOOD,URINE NEGATIVE (NEGATIVE); PROTEIN,URINE 30 mg/dL (NEGATIVE); UROBILINOGEN,URINE 0.2 (NORMAL) E.U./dL (NORMAL)
[2024-03-21 04:37] LABS: CLARITY,URINE HAZY (CLEAR)
[2024-03-21 04:43] LABS: BACTERIA,URINE Many /HPF (None Seen); RBC,URINE 0-5 /HPF (0-5); SQUAMOUS EPITHELIAL CELL,UR MANY Squamous (<= Few)
[2024-03-21 04:44] LABS: AMPHETAMINE SCREEN,URINE POSITIVE (NEGATIVE); BENZODIAZEPINES SCREEN, URINE NEGATIVE (NEGATIVE); COCAINE SCREEN URINE POSITIVE (NEGATIVE); METHAMPHETAMINES SCREEN, URINE POSITIVE (NEGATIVE); OPIATE SCREEN, URINE NEGATIVE (NEGATIVE); THC CANNABINOID SCREEN, URINE NEGATIVE (NEGATIVE)
[2024-03-21 04:45] LABS: BARBITURATE SCREEN,UR NEGATIVE (NEGATIVE); BUPRENORPHINE SCREEN, URINE POSITIVE (NEGATIVE); METHADONE SCREEN, URINE NEGATIVE (NEGATIVE); OXYCODONE SCREEN, URINE NEGATIVE (NEGATIVE); TRICYCLIC ANTIDEPRESSANT,URINE NEGATIVE (NEGATIVE)
--- NOTE | 2024-03-21 14:20 | ED Physician Documentation ---
ED Addendum - Addendum Addendum: 03/21/24 14:18 The patient was signed out to me at change of shift, pending evaluation by social work and final disposition after presenting to the emergency department under the influence of drugs. The patient had been found running around naked and was brought in to the ED. She had to be sedated and restrained and was not in a position to converse with anybody until this afternoon. manager workers compensation Lakisha did speak with the patient and the patient did not have any recollection of her behavior the night before. The patient is already scheduled for intensive outpatient follow-up on Monday which is 4 days from now, and she has a roommate that she is staying with. She reported that she got upset because her mom decided not to let her take her children on a previously agreed-upon outing, and after the argument they Goding, the patient went and did some drugs. The patient is now alert and oriented x 4 and calm and cooperative and would like to go home. I feel this is reasonable at this time. The patient is advised to continue her plans for follow-up as scheduled. We have discussed the usual indications for follow-up and return. Final impression: 1. Polysubstance abuse 2. Psychosis Disposition: Discharged home in stable and improved condition. 03/21/24 14:20
[2024-03-21 14:48] VITALS: BP 114/8; O2SAT 100
== END 2024-03-21 14:41 | disposition home or self-care (01) ==
LOC: EDUNIT# → ED 01:54
DX: F19.129 Other psychoactive substance abuse with intoxication, unspecified (principal); F29 Unspecified psychosis not due to a substance or known physiological condition; Z78.1 Physical restraint status
CPT/HCPCS: 36415; 80053; 80143; 80179; 80306; 81001; 82077; 82550; 83690; 83735; 84443; 84702; 85025; 96372; 99284; 99285; J1200; J2250; 81003; 87086

== ENCOUNTER 2024-04-05 11:51 | Outpatient (CLI) | payer MEDICAID | END 2024-04-05 11:52 | disposition critical access hospital (66) | LOC: EMS 11:51 | DX: Z04.6 Encounter for general psychiatric examination, requested by authority (principal) | CPT/HCPCS: A0425; A0429; A0999 ==

== ENCOUNTER 2024-04-05 12:14 | Emergency (ER) | payer MEDICAID ==
--- NOTE | 2024-04-05 12:20 | ED Physician Documentation ---
PD HPI MHE - Stated complaint Stated Complaint: ELENA - History obtained from History obtained from: Patient, EMS - Additional information Additional information: 34-year-old woman presents by EMS for ELENA from [facility]. Has history of fentanyl an d meth use and admits to using "a bit of both" today. She was acting as a reported danger to self where she was trespassed from a property. Because she was not talking on scene she was deemed to be a medical ELENA as opposed to a criminal trespass with drug use. PD PAST MEDICAL HISTORY - Past Medical History Cardiovascular: None Respiratory: None Neuro: None Endocrine/Autoimmune: None GI: None ASSOCIATE EDITOR: None : None HEENT: None Psych: None Musculoskeletal: None Derm: None - Past Surgical History Past Surgical History: Yes General: Other /ASSOCIATE EDITOR: section - Present Medications Home Medications: Ambulatory Orders Medication Instructions Recorded Confirmed No Known Home Medications 03/21/24 03/21/24 - Allergies Allergies/Adverse Reactions: Allergies Allergy/AdvReac Type Severity Reaction Status Date / Time oseltamivir [From Tamiflu] Allergy Emesis Verified 04/05/24 12:20 tramadol Allergy Emesis Verified 04/05/24 12:20 - Social History Does the pt smoke?: No Smoking Status: Never smoker Does the pt drink ETOH?: No Does the pt have substance abuse?: No - Immunizations Immunizations are current?: No - POLST Patient has POLST: No PD ED PE NORMAL - Vitals Vital signs reviewed: Yes - General General: Alert and oriented X 3, Other (She is calm and cooperative with me and answers questions. Has no specific complaints. Is agreeable to talking to social work. Mildly disheveled) - HEENT HEENT: PERRL, EOMI, Pharynx benign - Neck Neck: Supple, no meningeal sign, No bony TTP - Cardiac Cardiac: RRR, No murmur - Respiratory Respiratory: No respiratory distress, Clear bilaterally - Abdomen Abdomen: Soft, Non tender, Non distended - Derm Derm: Normal color, Warm and dry - Neuro Neuro: Alert and oriented X 3, personal property appraiser 2-12 intact Eye Opening: Spontaneous Motor: Obeys Commands Verbal: Oriented GCS Score: 15 Results - Vitals Vitals: Vital Signs - 24 hr 04/05/24 04/05/24 04/05/24 12:21 13:25 13:30 Temperature 37.5 C Heart Rate 104 H 62 72 Respiratory 13 14 15 Rate Blood Pressure 121/61 106/68 O2 Saturation 100 100 100 04/05/24 04/05/24 04/05/24 14:00 14:30 15:00 Temperature Heart Rate 82 67 75 Respiratory 12 13 13 Rate Blood Pressure 101/56 L 100/56 L 106/72 O2 Saturation 98 99 100 04/05/24 04/05/24 04/05/24 17:30 19:30 20:00 Temperature Heart Rate 65 59 L 62 Respiratory 13 14 14 Rate Blood Pressure 95/55 L O2 Saturation 100 99 99 Oxygen O2 Source Room air - Labs Labs: Laboratory Tests 04/05/24 04/05/24 04/05/24 12:35 12:38 12:38 WBC 7.5 RBC 3.69 L Hgb 9.8 L Hct 31.0 L MCV 84.0 MCH 26.6 L MCHC 31.6 L RDW 13.5 Plt Count 261 MPV 10.2 Neut # (Auto) 4.6 Lymph # (Auto) 2.2 [place] # (Auto) 0.6 Eos # (Auto) 0.1 Baso # (Auto) 0.0 Absolute Nucleated RBC 0.00 Nucleated RBC % 0.0 Sodium 142 Potassium 3.8 Chloride 108 Carbon Dioxide 28 Anion Gap 6.0 BUN 8 Creatinine 0.6 Estimated GFR (MDRD) 116 Glucose 83 Calcium 9.2 Magnesium 1.8 Total Bilirubin 0.8 AST 19 ALT 18 Alkaline Phosphatase 78 Total Creatine Kinase 101 Total Protein 6.2 L Albumin 3.7 Globulin 2.5 Albumin/Globulin Ratio 1.5 Lipase < 10 L TSH 0.79 Urine Color Urine Clarity Urine pH Ur Specific [place] Urine Protein Urine Glucose (UA) Urine Ketones Urine Occult Blood Urine Nitrite Urine Bilirubin Urine Urobilinogen Ur Leukocyte Esterase Urine RBC Urine WBC Ur Squamous Epith Cells Urine Bacteria Urine Mucus Ur Microscopic Review Urine Culture Comments Urine HCG, Qual Salicylates < 1.5 Urine Opiates Screen Ur Buprenorphine Scrn Ur Oxycodone Screen Urine Methadone Screen Acetaminophen 0.1 Ur Barbiturates Screen Ur Tricyclics Screen Ur Phencyclidine Scrn Ur Amphetamine Screen U Methamphetamines Scrn U Benzodiazepines Scrn Urine Cocaine Screen U Cannabinoids Screen Ur Drug Screen Comment Ethyl Alcohol 10.0 SARS-CoV-2 (PCR) NOT DETECTED 08/02/24 08/02/24 13:00 13:00 WBC RBC Hgb Hct MCV MCH MCHC RDW Plt Count MPV Neut # (Auto) Lymph # (Auto) [place] # (Auto) Eos # (Auto) Baso # (Auto) Absolute Nucleated RBC Nucleated RBC % Sodium Potassium Chloride Carbon Dioxide Anion Gap BUN Creatinine Estimated GFR (MDRD) Glucose Calcium Magnesium Total Bilirubin AST ALT Alkaline Phosphatase Total Creatine Kinase Total Protein Albumin Globulin Albumin/Globulin Ratio Lipase TSH Urine Color DARK YELLOW Urine Clarity CLOUDY Urine pH 5.5 Ur Specific [place] >=1.030 H Urine Protein TRACE Urine Glucose (UA) NEGATIVE Urine Ketones 15 H Urine Occult Blood NEGATIVE Urine Nitrite POSITIVE H Urine Bilirubin SMALL H Urine Urobilinogen 1 (NORMAL) Ur Leukocyte Esterase TRACE H Urine RBC 0-5 Urine WBC 4-5 Ur Squamous Epith Cells FEW Squamous Urine Bacteria Many H Urine Mucus Moderate Strands Ur Microscopic Review INDICATED Urine Culture Comments INDICATED Urine HCG, Qual NEGATIVE Salicylates Urine Opiates Screen NEGATIVE Ur Buprenorphine Scrn POSITIVE H Ur Oxycodone Screen NEGATIVE Urine Methadone Screen NEGATIVE Acetaminophen Ur Barbiturates Screen NEGATIVE Ur Tricyclics Screen NEGATIVE Ur Phencyclidine Scrn NEGATIVE Ur Amphetamine Screen POSITIVE H U Methamphetamines Scrn POSITIVE H U Benzodiazepines Scrn NEGATIVE Urine Cocaine Screen POSITIVE H U Cannabinoids Screen NEGATIVE Ur Drug Screen Comment CUTOFF CONC BELOW: Ethyl Alcohol SARS-CoV-2 (PCR) PD Medical Decision Making - ED course ED course: She presents by ambulance as an ELENA. Initially calm and cooperative. Social work and routine lab work ordered. As time went on she became more agitated. Initially ordered some oral Ativan and Zyprexa for anxiolytic and antipsychotic properties. Subsequently she became aggressive and a stat alert was called. I initially ordered a chemical restraint but subsequently canceled it, the nurse felt that since she had taken the oral meds if we could physically restrain her for a while that would be sufficient. As such the chemical restraint was canceled and 4 point extremity restraints were ordered as the patient continued to be aggressive. Subsequently the oral meds seem to have kicked in the restraints were removed. She slept for several hours with unremarkable vitals. Diagnostic workup shows that she is modestly anemic, normal CMP. Urinalysis has some bacteria with nitrate but no white cells so really not concern for UTI given lack of symptomatology. test was negative. Drug screens were positive for Suboxone, amphetamine and methamphetamine, and cocaine. She was COVID-negative. Care to Dr Mccarthy at 10p pending sobriety and normal mental status. I have checked on her several times, sleeping soundly with nl VS. Departure - Departure Clinical Impression: Polysubstance abuse Condition: Stable
[2024-04-05 12:47] LABS: BASOPHILS % (AUTO) 0.4 %; EOSINOPHILS # (AUTO) 0.1 10^3/uL (0.0-0.7); EOSINOPHILS % (AUTO) 1.9 %; HGB - HEMOGLOBIN 9.8 g/dL (12.0-16.0); LYMPHOCYTES # (AUTO) 2.2 10^3/uL (1.5-3.5); LYMPHOCYTES % (AUTO) 29.5 %; MEAN CORPUSCULAR HEMOGLOBIN 26.6 pg (27.0-31.0); MEAN CORPUSCULAR HGB CONC 31.6 g/dL (32.0-36.0); MEAN PLATELET VOLUME 10.2 fL (7.9-10.8); MONOCYTES # (AUTO) 0.6 10^3/uL (0.0-1.0); MONOCYTES % (AUTO) 7.6 %; NEUTROPHILS # (AUTO) 4.6 10^3/uL (1.5-6.6); NEUTROPHILS % (AUTO) 60.5 %; PLT - PLATELET COUNT 261 10^3/uL (130-450); RED BLOOD COUNT 3.69 10^6/uL (4.20-5.40); RED CELL DISTRIBUTION WIDTH 13.5 % (12.0-15.0); WHITE BLOOD COUNT 7.5 x10^3/uL (4.8-10.8)
[2024-04-05 13:00] LABS: ACETAMINOPHEN 0.1 ug/mL; ALBUMIN 3.7 g/dL (3.2-5.5); ALBUMIN/GLOBULIN RATIO 1.5 (1.0-2.2); ALKALINE PHOSPHATASE 78 IU/L (42-121); ALT ALANINE AMINOTRANSFERASE 18 IU/L (10-60); AST ASPARTATE AMINOTRANSFERASE 19 IU/L (10-42); BILIRUBIN,TOTAL 0.8 mg/dL (0.2-1.0); BUN - BLOOD UREA NITROGEN 8 mg/dL (6-20); CALCIUM 9.2 mg/dL (8.5-10.3); CARBON DIOXIDE - CO2 28 mmol/L (21-32); CHLORIDE 108 mmol/L (101-111); CK- CREATINE KINASE 101 IU/L (30-223); CREATININE 0.6 mg/dL (0.6-1.3); GFR - MDRD 116 (>89); GLUCOSE 83 mg/dL (74-104); LIPASE < 10 U/L (11-82); MAGNESIUM 1.8 mg/dL (1.7-2.3); POTASSIUM 3.8 mmol/L (3.5-4.5); SODIUM 142 mmol/L (135-145); TOTAL PROTEIN 6.2 g/dL (6.4-8.9)
[2024-04-05 13:03] LABS: SALICYLATE < 1.5 mg/dL
[2024-04-05] MEDS: OLANZapine ODT 5 MG TABLET TL ONE (13:13)
[2024-04-05] MEDS: LORazepam 1 MG TABLET PO STA (13:14)
[2024-04-05 13:15] LABS: THYROID STIMULATING HORMONE 0.79 uIU/mL (0.34-5.60)
[2024-04-05 13:31] LABS: BILIRUBIN,URINE SMALL (NEGATIVE); GLUCOSE, URINE (UA) NEGATIVE (NEGATIVE); KETONES,URINE (UA) 15 mg/dL (NEGATIVE); LEUKOCYTE ESTERASE, URINE TRACE (NEGATIVE); NITRITE,URINE POSITIVE (NEGATIVE); OCCULT BLOOD,URINE NEGATIVE (NEGATIVE); PH,URINE 5.5 PH (5.0-7.5); PROTEIN,URINE TRACE mg/dL (NEGATIVE); UROBILINOGEN,URINE 1 (NORMAL) E.U./dL (NORMAL)
[2024-04-05 13:32] LABS: CLARITY,URINE CLOUDY (CLEAR)
--- NOTE | 2024-04-05 13:33 | ED Physician Documentation ---
Restraint [id number] - Immediate Situation Face to Face Evaluation Date: 04/05/24 Face to Face Evaluation Time: 13:31 Restraint Classification: Violent, physical - Patient's Reaction & Behaviors Safety: Physically safe Physical: Aggressive behavior - Behavioral Condition Attitude: Indifferent Behavior: Withdrawn Orientation: Non-responsive Mood: Labile, Angry, Anxious - Evaluation Current Medical Condition Relating to Need for Restraint: Substance abuse with aggressive behavioral outburst Pertinent History/Illicit Drugs/Medications/Results: polysubstance abuse - Plan Need to Initiate/Renew Violent or Chemical Restraint: She was placed in locked 4 point restraints and is calming down. She had just received some oral medications, olanzapine and lorazepam. Cochleas they kick in and she relaxes a bit we can be assured of patient and staff safety and the restraints will be discontinued at the earliest safe opportunity.
[2024-04-05 13:40] LABS: RBC,URINE 0-5 /HPF (0-5); SQUAMOUS EPITHELIAL CELL,UR FEW Squamous (<= Few)
[2024-04-05 13:41] LABS: BACTERIA,URINE Many /HPF (None Seen); MUCUS,URINE Moderate Strands
[2024-04-05 13:44] LABS: AMPHETAMINE SCREEN,URINE POSITIVE (NEGATIVE); BARBITURATE SCREEN,UR NEGATIVE (NEGATIVE); BENZODIAZEPINES SCREEN, URINE NEGATIVE (NEGATIVE); BUPRENORPHINE SCREEN, URINE POSITIVE (NEGATIVE); COCAINE SCREEN URINE POSITIVE (NEGATIVE); METHADONE SCREEN, URINE NEGATIVE (NEGATIVE); METHAMPHETAMINES SCREEN, URINE POSITIVE (NEGATIVE); OPIATE SCREEN, URINE NEGATIVE (NEGATIVE); OXYCODONE SCREEN, URINE NEGATIVE (NEGATIVE); THC CANNABINOID SCREEN, URINE NEGATIVE (NEGATIVE); TRICYCLIC ANTIDEPRESSANT,URINE NEGATIVE (NEGATIVE)
[2024-04-05 14:05] LABS: HCG UR QUAL NEGATIVE
[2024-04-05] MEDS: OLANZapine 10 MG VIAL IM ONE (14:45)
[2024-04-05] MEDS: KETAMINE 500 MG/10 ML VIAL IM STA (14:46)
--- NOTE | 2024-04-06 07:18 | ED Physician Documentation ---
ED Addendum - Addendum Addendum: 04/06/24 07:16 The patient has rested pretty much through the night. I believe she may have got up to go to the bathroom. No reports from nursing about agitation or problems. Essentially was quite quiet and sleeping. At this point we will have the nurses try arousing her in a little while see if she wants some breakfast or such. The alfonso will be her orientation and alertness and any agitation as to whether she may be dischargeable versus needing further assessment. If she would like, we can see if social work can offer help with detox or treatment programs etc.
[2024-04-06 07:37] VITALS: BP 101/73; O2SAT 97
--- NOTE | 2024-04-06 13:19 | ED Physician Documentation ---
ED Addendum - Addendum Addendum: 04/06/24 13:19 At this point she is calm and cooperative, normal mental status, she does not currently have any indication for ongoing involuntary hold. She did not want to talk to the child protective services social worker about treatment options but does want to go to her parents house. Disposition: Discharged home Condition: Stable
== END 2024-04-06 13:20 | disposition home or self-care (01) ==
LOC: ED 12:14
DX: F19.129 Other psychoactive substance abuse with intoxication, unspecified (principal); R45.1 Restlessness and agitation; Z78.1 Physical restraint status
CPT/HCPCS: 36415; 80053; 80143; 80179; 80306; 81001; 81025; 82077; 82550; 83690; 83735; 84443; 85025; 87635; 99283; 99285; A9270; J8499; 81003; 87086

== ENCOUNTER 2024-05-03 11:40 | Outpatient (CLI) | payer OTHER ==
[2024-05-03 11:48] LABS: BILIRUBIN,URINE NEGATIVE (NEGATIVE); GLUCOSE, URINE (UA) NEGATIVE (NEGATIVE); KETONES,URINE (UA) NEGATIVE (NEGATIVE); LEUKOCYTE ESTERASE, URINE NEGATIVE (NEGATIVE); NITRITE,URINE POSITIVE (NEGATIVE); OCCULT BLOOD,URINE NEGATIVE (NEGATIVE); PROTEIN,URINE NEGATIVE (NEGATIVE); UROBILINOGEN,URINE 0.2 (NORMAL) E.U./dL (NORMAL)
[2024-05-03 11:53] LABS: CLARITY,URINE CLEAR (CLEAR)
[2024-05-03 12:06] LABS: BACTERIA,URINE Many /HPF (None Seen); RBC,URINE 0-5 /HPF (0-5); SQUAMOUS EPITHELIAL CELL,UR MOD Squamous (<= Few)
[2024-05-03 21:20] LABS: CHLAMYDIA TRACHOMATIS DNA NEGATIVE (NEGATIVE); NEISSERIA GONORRHOEAE DNA NEGATIVE (NEGATIVE); TRICHOMONAS VAGINALIS DNA NEGATIVE (NEGATIVE)
== END 2024-05-03 11:41 | disposition home or self-care (01) ==
LOC: LAB.R 11:40
PROVIDERS: ATTEND Registered Nurse
DX: R82.90 Unspecified abnormal findings in urine (principal); A56.8 Sexually transmitted chlamydial infection of other sites
CPT/HCPCS: 81001; 87086; 87491; 87591; 87661